=== PATIENT | female | born 1960 | race American Indian/Alaskan Native ===

== ENCOUNTER 2019-01-17 18:12 | Inpatient (IN) | payer OTHER ==
--- NOTE | 2019-01-17 20:01 | Emergency Department Report ---
Chief Complaint: Medical Clearance Stated Complaint: HEART PROBLEM/REFERRED BY Time Seen by Provider: 01/17/19 19:57 - HPI History of Present Illness: Pt was seen by [facility] today advised to be sent to ED for acute exacerbation of heart failure states that SOB, exertional SOB with steps for a couple of days pt is supposed to be on a water pill ran out two days ago VSS MSE screening note: Focused history performed Due to findings the following was ordered: CXR, labs ED Disposition for MSE Condition: Stable
[2019-01-17 20:29] LABS: Basophils % (Auto) 0.1 % (0.0-1.8); Eosinophils # (Auto) 0.1 K/mm3 (0.0-0.4); Eosinophils % (Auto) 1.3 % (0.0-4.3); Hemoglobin 13.3 gm/dl (10.1-14.3); Lymphocytes % (Auto) 37.4 % (13.4-35.0); Mean Corpuscular HGB Conc 32 % (30-34); Mean Corpuscular Volume 89 fl (79-97); Monocytes # (Auto) 0.4 K/mm3 (0.0-0.8); Monocytes % (Auto) 7.5 % (0.0-7.3); Platelet Count 202 K/mm3 (140-440); Red Blood Count 4.61 M/mm3 (3.65-5.03)
[2019-01-17 20:50] LABS: Alanine Aminotransferase 16 units/L (7-56); Albumin 3.7 g/dL (3.9-5); BUN/Creatinine Ratio 23; Blood Urea Nitrogen 21 mg/dL (7-17); Calcium 9.4 mg/dL (8.4-10.2); Hemolysis Index 9
--- NOTE | 2019-01-17 22:11 | XRay Report ---
PROCEDURE: XR CHEST ROUTINE 2V TECHNIQUE: PA and lateral views of the chest HISTORY: hx of CHF COMPARISONS: None FINDINGS: There is prominence of the interstitial markings in both lungs with peribronchial thickening. There is no definite evidence of focal infiltrate and no evidence of pneumothorax or pleural fluid co llection. The cardiac silhouette is markedly enlarged. The thoracic aorta is mildly tortuous with atherosclerotic vascular calcification. The bony structures are notable for degenerative change of the shoulder joints bilaterally. IMPRESSION: 1. Markedly enlarged cardiac silhouette. 2. Prominence of the interstitial markings with peribronchial thickening, acute versus chronic. This may represent changes of interstitial edema. Comparison with previous imaging studies would be helpful. This document is electronically signed by Lisy Arias MD., January 17 2019 10:09:31 PM ET
[2019-01-17] MEDS ORDERED: LASIX IV ONE (22:26)
--- NOTE | 2019-01-17 22:32 | Emergency Department Report ---
ED Shortness of Breath HPI - General Chief Complaint: Medical Clearance Stated Complaint: HEART PROBLEM/REFERRED BY Time Seen by Provider: 01/17/19 19:57 Source: patient Mode of arrival: Ambulatory Limitations: No Limitations - History of Present Illness Initial Comments: Patient is 59 years old female with history of diabetes and a remote history of congestive heart failure. Patient presented to the ER after she was sent from her mortgage coordinator office for admission for CHF exacerbation. Patient stated that she's been having shortness of breath and generalized weakness for the last 3 days. Patient admitted for orthopnea. Patient denied any chest pain, cough or chills. MD Complaint: shortness of breath, cough -: days(s) (3) Severity: moderate Consistency: constant Worsens With: lying flat Known History Of: congestive heart failure - Related Data Home Medications Medication Instructions Recorded Confirmed Last Taken Aspirin EC [Aspirin Enteric Coated 81 mg PO QDAY 11/14/15 11/20/15 11/15/15 TAB] Carvedilol [Coreg] 25 mg PO BID 11/14/15 11/20/15 11/20/15 03:00 Cholecalciferol (Vitamin D3) 2,000 unit PO QDAY 11/14/15 11/20/15 11/19/15 00:00 [Vitamin D-3] Glucosamine/Chondroitin Sulf A 1 each PO QDAY 11/14/15 11/20/15 11/19/15 00:00 [Glucosamine-Chondroitin Cap] metFORMIN [Glucophage] 500 mg PO BID 11/14/15 11/20/15 11/19/15 00:00 Fluticasone [Flonase] 1 spray NS QDAY PRN 11/19/15 11/20/15 11/19/15 00:00 Previous Rx's Medication Instructions Recorded Last Taken Type HYDROcodone/APAP 5-325 [[place] 1 each PO Q6HR PRN #30 tablet 11/20/15 Unknown Rx 5/325] HYDROcodone/APAP 5-325 [[place] 1 each PO Q6HR PRN #30 tablet 11/20/15 Unknown Rx 5/325] Allergies Allergy/AdvReac Type Severity Reaction Status Date / Time No Known Allergies Allergy Unverified 11/14/15 10:16 ED Review of Systems ROS: Stated complaint: HEART PROBLEM/REFERRED BY Other details as noted in HPI Comment: All other systems reviewed and negative Constitutional: denies: chills, fever Respiratory: orthopnea, shortness of breath, SOB with exertion, SOB at rest. denies: cough, wheezing Cardiovascular: denies: chest pain, palpitations Gastrointestinal: denies: abdominal pain, nausea, vomiting, diarrhea, constipation, hematemesis, melena, hematochezia Neurological: weakness (generalized). denies: headache, numbness, paresthesias, confusion, abnormal gait ED Past Medical Hx - Past Medical History Hx Hypertension: Yes (+ Cardiomyopathy) Hx Diabetes: Yes (FOR 1 YR) Hx Renal Disease: No Hx Arthritis: Yes (IN KNEES, WRIST AND SHOULDERS) Hx Seizures: No Hx Asthma: Yes (DR. GONZALEZ- PCP) Hx HIV: No - Surgical History Hx Breast Surgery: Yes (RIGHT BREAST BX 09/2015) - Social History Smoking Status: Never Smoker Substance Use Type: None - Medications Home Medications: Home Medications Medication Instructions Recorded Confirmed Last Taken Type Aspirin EC [Aspirin Enteric Coated 81 mg PO QDAY 11/14/15 11/20/15 11/15/15 History TAB] Carvedilol [Coreg] 25 mg PO BID 11/14/15 11/20/15 11/20/15 03:00 History Cholecalciferol (Vitamin D3) 2,000 unit PO QDAY 11/14/15 11/20/15 11/19/15 00:00 History [Vitamin D-3] Glucosamine/Chondroitin Sulf A 1 each PO QDAY 11/14/15 11/20/15 11/19/15 00:00 History [Glucosamine-Chondroitin Cap] metFORMIN [Glucophage] 500 mg PO BID 11/14/15 11/20/15 11/19/15 00:00 History Fluticasone [Flonase] 1 spray NS QDAY PRN 11/19/15 11/20/15 11/19/15 00:00 History HYDROcodone/APAP 5-325 [[place] 1 each PO Q6HR PRN #30 tablet 11/20/15 Unknown Rx 5/325] HYDROcodone/APAP 5-325 [[place] 1 each PO Q6HR PRN #30 tablet 11/20/15 Unknown Rx 5/325] ED Physical Exam - General Limitations: No Limitations General appearance: alert, in no apparent distress - Head Head exam: Present: atraumatic - Eye Eye exam: Present: normal appearance, PERRL - ENT ENT exam: Present: normal exam, normal orophraynx, mucous membranes moist - Neck Neck exam: Present: normal inspection, full ROM. Absent: tenderness, meningismus, lymphadenopathy, thyromegaly - Respiratory Respiratory exam: Present: rales. Absent: respiratory distress, wheezes, rhonchi, stridor, accessory muscle use, decreased breath sounds, prolonged expiratory - Cardiovascular Cardiovascular Exam: Present: regular rate, normal rhythm, normal heart sounds - GI/Abdominal GI/Abdominal exam: Present: soft, normal bowel sounds. Absent: distended, tenderness, guarding, rebound, rigid, organomegaly, mass, bruit, pulsatile mass - Extremities Exam Extremities exam: Present: normal inspection, full ROM, normal capillary refill, pedal edema. Absent: calf tenderness - Back Exam Back exam: Present: normal inspection, full ROM. Absent: CVA tenderness (R), CVA tenderness (L) - Neurological Exam Neurological exam: Present: alert, oriented X3, CN II-XII intact, normal gait, reflexes normal - Skin Skin exam: Present: warm, intact, normal color ED Course Vital Signs 01/17/19 19:57 Temperature 98.6 F Pulse Rate 89 Respiratory 20 Rate Blood Pressure 135/86 O2 Sat by Pulse 98 Oximetry - Consultations Consultation #1: 01/17/19 22:40 I discussed the patient is Dr. Kraus, he advised to admit to the hospital and he will be consulted and the patient. ED Medical Decision Making - Lab Data Result diagrams: 01/17/19 20:07 01/17/19 20:07 - EKG Data -: EKG Interpreted by [facility] - Radiology Data Radiology results: report reviewed Referring Physician: CY HICKMAN Patient Name: MAILE REBOLLAR Date of : 1960 Sex: Female Report Date: 2019-01-17 Report Status: Finalized Findings [facility] [address] [place] [address] XRay Report Signed Patient: MAILE REBOLLAR MR#: [id number] : 1960 Acct:[id number] Age/Sex: 59 / F ADM Date: 01/17/19 Loc: ED Attending Dr: Ordering Physician: ROYAL WILD Date of Service: 01/17/19 Procedure(s): XR chest routine 2V Accession Number(s): [id number] cc: ROYAL WILD Fluoro Time In Minutes: PROCEDURE: XR CHEST ROUTINE 2V TECHNIQUE: PA and lateral views of the chest HISTORY: hx of CHF COMPARISONS: None FINDINGS: There is prominence of the interstitial markings in both lungs with peribronchial thickening. There is no definite evidence of focal infiltrate and no evidence of pneumothorax or pleural fluid collection. The cardiac silhouette is markedly enlarged. The thoracic aorta is mildly tortuous with atherosclerotic vascular calcification. The bony structures are notable for degenerative change of the shoulder joints bilaterally. IMPRESSION: 1. Markedly enlarged cardiac silhouette. 2. Prominence of the interstitial markings with peribronchial thickening, acute versus chronic. This may represent changes of interstitial edema. Comparison with previous imaging studies would be helpful. This document is electronically signed by Lisy Arias MD., January 17 2019 10:09:31 PM ET Transcribed By: ED Dictated By: LISY ARIAS MD Electronically Authenticated By: LISY ARIAS MD Signed Date/Time: 01/17/192210 DD/ 15 TD/TT: 01/17/192115 - Medical Decision Making Patient is 59 years old female with history of diabetes and a remote history of congestive heart failure. Patient presented to the ER after she was sent from her mortgage coordinator office for admission for CHF exacerbation. Patient stated that she's been having shortness of breath and generalized weakness for the last 3 days. Patient admitted for orthopnea. Patient denied any chest pain, cough or chills. Patient chest x-ray showed a pulmonary congestion and a BNP >6000. I discussed the patient is Dr. Kraus from mortgage coordinator. I discussed the patient is Dr. Anisha Bearden, She agreed to admit the patient to medical service. Critical Care Time: Yes Critical care time in (mins) excluding proc time.: 30 Critical care attestation.: If time is entered above; I have spent that time in minutes in the direct care of this critically ill patient, excluding procedure time. ED Disposition Clinical Impression: CHF exacerbation Disposition: OP ADMIT IP TO THIS HOSP Is pt being admited?: Yes Condition: Stable Referrals: [facility] [place], MD [Primary Care Provider] - 3-5 Days
--- NOTE | 2019-01-17 23:43 | History and Physical Report ---
History of Present Illness Date of examination: 01/17/19 History of present illness: 59-year-old history of diabetes, CHF, asthma, emergency room with complaints of shortness, PND, and lower extremity edema 3 days. She states that she's been off her Lasix years because she has been doing well, the crime scene examiner took her off it. She saw a crime scene examiner today who sent her to the emergency room for further evaluation, an echocardiogram was done in their office Review of systems Constitutional: no weight loss, chills, fever Ears, eyes, nose, mouth and throat: no nasal congestion, no nasal discharge, no sinus pressure, no vision change, no red eye. Neck: No neck pain or rigidity. Cardiovascular: no palpitations, chest pain Respiratory: no cough,+ shortness of breath Gastrointestinal: no hematochezia, abdominal pain Genitourinary : no frequency , no hematuria Musculoskeletal: no joint swelling or muscle ache Integumentary: no rash, no pruritis Neurological: no parathesias, no focal weakness Endocrine: no cold or heat intolerance, no polyuria or polydipsia Hematologic/Lymphatic: no easy bruising, no easy bleeding, no gland swelling Allergic/Immunologic: no urticaria, no angioedema. PAST MEDICAL HISTORY:diabetes, CHF, asthma PAST SURGICAL HISTORY: Breast SOCIAL HISTORY: Social alcohol, no drugs, tobacco FAMILY HISTORY: Hypertension Medications and Allergies Allergies Allergy/AdvReac Type Severity Reaction Status Date / Time No Known Allergies Allergy Unverified 11/14/15 10:16 Home Medications Medication Instructions Recorded Confirmed Last Taken Type Aspirin EC [Aspirin Enteric Coated 81 mg PO QDAY 11/14/15 01/18/19 01/17/19 History TAB] Carvedilol [Coreg] 25 mg PO BID 11/14/15 01/18/19 01/17/19 History Cholecalciferol (Vitamin D3) 2,000 unit PO QDAY 11/14/15 01/20/19 11/19/15 00:00 History [Vitamin D3] Glucosamine/Chondroitin Sulf A 1 each PO QDAY 11/14/15 01/20/19 11/19/15 00:00 History [Glucosamine-Chondroitin Cap] metFORMIN [Glucophage] 500 mg PO BID 11/14/15 01/20/19 11/19/15 00:00 History Fluticasone [Flonase] 1 spray NS QDAY PRN 11/19/15 01/20/19 11/19/15 00:00 History HYDROcodone/APAP 5-325 [[place] 1 each PO Q6HR PRN #30 tablet 11/20/15 01/20/19 Unknown Rx 5-325 mg TAB] HYDROcodone/APAP 5-325 [[place] 1 each PO Q6HR PRN #30 tablet 11/20/15 01/20/19 Unknown Rx 5-325 mg TAB] Furosemide [Lasix TAB] 40 mg PO BID #60 tablet 01/20/19 Unknown Rx Lisinopril [Zestril TAB] 2.5 mg PO QDAY #30 tablet 01/20/19 Unknown Rx Potassium Chloride [K-Dur] 10 meq PO QDAY #30 tablet 01/20/19 Unknown Rx Exam - Physical Exam Narrative exam: General Apperance: The patient lying in bed, breathing comfortable HEENT: Normocephalic, atraumatic. Pupils equally round and reactive to light, EOMI, no sclericterus or JVD or thyromegaly or nodule. , no carotid bruit, mucous membranes moist, no exudate or erythema Heart: S1-S2, regular is rhythm Lungs: Crackles bilaterally, breathing comfortable Abdomen: Positive bowel sounds, soft, nontender, nondistended, no organomegaly Extremities: +edema cyanosis clubbing Skin: no rash, nodule, warm and dry Neuro: cranial nerves 2-12 intact, speech is fluent, motor/sensory intact - Constitutional Vitals: Temp Pulse Resp BP Pulse Ox 98.6 F 89 20 135/86 98 01/17/19 19:57 01/17/19 19:57 01/17/19 19:57 01/17/19 19:57 01/17/19 19:57 Results - Labs CBC & Chem 7: 01/18/19 05:46 01/19/19 06:39 Labs: Abnormal lab results 01/17/19 01/17/19 Range/Units 20:07 20:07 RDW 17.0 H (13.2-15.2) % Lymph % (Auto) 37.4 H (13.4-35.0) % [place] % (Auto) 7.5 H (0.0-7.3) % Chloride 109.1 H (98-107) mmol/L Carbon Dioxide 20 L (22-30) mmol/L BUN 21 H (7-17) mg/dL Glucose 126 H (65-100) mg/dL NT-Pro-B Natriuret Pep 6118 H (0-900) pg/mL Albumin 3.7 L (3.9-5) g/dL - Imaging and Cardiology Chest x-ray: report reviewed Assessment and Plan Assessment CHF exacerbation, probably systolic diabetes asthma Plan Admit to medicine Diurese IV Lasix Check cardiac enzymes, recent echo was done Consult cardiology, start beta stephanie, JESUS inhibitor, aspirin Monitor I's and O's, daily weights Check fingersticks, initiate insulin sliding scale DVT prophylaxis
[2019-01-18] MEDS ORDERED: ZOFRAN IV PRN (00:47)
[2019-01-18] MEDS ORDERED: SODIUM CHLORIDE FLUSH SYRINGE 10 ML IV PRN (00:47)
[2019-01-18] MEDS ORDERED: PERCOCET 5/325 PO PRN (00:47)
[2019-01-18] MEDS ORDERED: TYLENOL PO PRN (00:47)
[2019-01-18] MEDS ORDERED: D50W (25GM) Syringe IV PRN (00:47)
[2019-01-18] MEDS ORDERED: FLONASE NS PRN (00:48)
[2019-01-18 01:58] LABS: Creatine Kinase MB 1.5 ng/mL (0.0-4.0)
[2019-01-18] MEDS: DUONEB *Not for PRN Use IH SCH ×4 (03:17→21:02)
[2019-01-18 06:00] LABS: Basophils # (Auto) 0.1 K/mm3 (0.0-0.1); Basophils % (Auto) 1.1 % (0.0-1.8); Eosinophils # (Auto) 0.1 K/mm3 (0.0-0.4); Eosinophils % (Auto) 1.7 % (0.0-4.3); Hematocrit 41.7 % (30.3-42.9); Hemoglobin 13.4 gm/dl (10.1-14.3); Lymphocytes # (Auto) 2.2 K/mm3 (1.2-5.4); Lymphocytes % (Auto) 42.2 % (13.4-35.0); Mean Corpuscular HGB Conc 32 % (30-34); Mean Corpuscular Volume 89 fl (79-97); Monocytes # (Auto) 0.4 K/mm3 (0.0-0.8); Monocytes % (Auto) 7.7 % (0.0-7.3); Platelet Count 204 K/mm3 (140-440); Red Cell Distribution Width 16.9 % (13.2-15.2)
[2019-01-18 06:18] LABS: Creatine Kinase MB 1.5 ng/mL (0.0-4.0)
[2019-01-18 06:23] LABS: BUN/Creatinine Ratio 19; Blood Urea Nitrogen 21 mg/dL (7-17); Calcium 9.4 mg/dL (8.4-10.2); Hemolysis Index 3
[2019-01-18] MEDS: LASIX IV SCH ×2 (06:24→18:11)
[2019-01-18] MEDS: HumaLOG SUB-Q SCH ×4 (07:30→22:26)
[2019-01-18] MEDS ORDERED: GLUCOSAMINE PO SCH (10:00)
[2019-01-18] MEDS ORDERED: CHONDROITIN PO SCH (10:00)
--- NOTE | 2019-01-18 10:44 | Consultation ---
History of Present Illness Consult date: 01/18/19 Requesting physician: YOSSI LUNDY Consult reason: congestive heart failure History of present illness: Patient is a 59 y/o Black female with a history of aloah-lb-pjzlere heart failure with reduced ejection fraction, dilated nonischemic cardiomyopathy, hypertension, diabetes and asthma who presented to the [facility] ED on 01/17/19 after a visit to our office with shortness of breath and leg swelling for 2-3 days. A n echo from our office on 01/17 found an EF of 10 to 15 percent with a severely dilated LV, moderate hypertension, moderate to severe MR, and moderately dilated RA. She normally follows with Dr. Saucedo, but was seen by Dr. Mak Kraus for an unscheduled visit. She reports that she ran out of her Lasix and initially attributed her shortness of breath to allergies/asthma; however, her shortness of breath worsened to the point where she could not lie flat and her legs became swollen. Her last cardiac catheterization on 01/15/10 found normal coronaries, dilated cardiomyopathy and an EF of 20 to 25 percent. Chest x-ray showed no significant acute findings. She received a dose of Lasix in the ED and reports her breathing is improved on examination this morning. She states she is able to lie flat and walk to the bathroom. Past History Past Medical History: diabetes, heart failure, other (asthma) Past Surgical History: total knee replacement, Other (right breast biopsy) Medications and Allergies Allergies Allergy/AdvReac Type Severity Reaction Status Date / Time No Known Allergies Allergy Unverified 11/14/15 10:16 Home Medications Medication Instructions Recorded Confirmed Last Taken Type Aspirin EC [Aspirin Enteric Coated 81 mg PO QDAY 11/14/15 01/18/19 01/17/19 History TAB] Carvedilol [Coreg] 25 mg PO BID 11/14/15 01/18/19 01/17/19 History Cholecalciferol (Vitamin D3) 2,000 unit PO QDAY 11/14/15 11/20/15 11/19/15 00:00 History [Vitamin D-3] Glucosamine/Chondroitin Sulf A 1 each PO QDAY 11/14/15 11/20/15 11/19/15 00:00 History [Glucosamine-Chondroitin Cap] metFORMIN [Glucophage] 500 mg PO BID 11/14/15 11/20/15 11/19/15 00:00 History Fluticasone [Flonase] 1 spray NS QDAY PRN 11/19/15 11/20/15 11/19/15 00:00 History HYDROcodone/APAP 5-325 [[place] 1 each PO Q6HR PRN #30 tablet 11/20/15 Unknown Rx 5/325] HYDROcodone/APAP 5-325 [[place] 1 each PO Q6HR PRN #30 tablet 11/20/15 Unknown Rx 5/325] Active Meds: Active Medications Acetaminophen (Tylenol) 650 mg PO Q4H PRN PRN Reason: Pain MILD(1-3)/Fever >100.5/CONTI Albuterol/Ipratropium (Duoneb *Not For Prn Use*) 1 ampul IH Q6HRT [facility] Last Admin: 01/18/19 03:17 Dose: Not Given Documented by: Aspirin (Halfprin Ec) 81 mg PO QDAY [facility] Carvedilol (Coreg) 25 mg PO BID [facility] Cholecalciferol (Vitamin D3) 2,000 unit PO QDAY [facility] Dextrose (D50w (25gm) Syringe) 50 ml IV PRN PRN PRN Reason: Hypoglycemia Enoxaparin Sodium (Lovenox) 40 mg SUB-Q QDAY [facility] Fluticasone Propionate (Flonase) 50 mcg NS QDAY PRN PRN Reason: SINUS ALLERGIES Furosemide (Lasix) 40 mg IV BID@0600,1800 [facility] Last Admin: 01/18/19 06:24 Dose: 40 mg Documented by: Insulin Human Lispro (Humalog) 0 unit SUB-Q [facility]; Protocol Lisinopril (Zestril) 2.5 mg PO QDAY [facility] Metformin HCl (Glucophage) 500 mg PO BIDDIAB [facility] Ondansetron HCl (Zofran) 4 mg IV Q8H PRN PRN Reason: Nausea And Vomiting Oxycodone/Acetaminophen (Percocet 5/325) 1 tab PO Q6H PRN PRN Reason: Pain, Moderate (4-6) Sodium Chloride (Sodium Chloride Flush Syringe 10 Ml) 10 ml IV BID [facility] Sodium Chloride (Sodium Chloride Flush Syringe 10 Ml) 10 ml IV PRN PRN PRN Reason: LINE FLUSH Review of Systems Cardiovascular: shortness of breath, dyspnea on exertion Respiratory: shortness of breath, dyspnea on exertion Physical Examination Last Vital Signs Temp 97.9 F 01/18/19 08:23 Pulse 78 01/18/19 06:06 Resp 18 01/18/19 08:23 BP 113/65 01/18/19 08:23 Pulse Ox 100 01/18/19 03:04 General appearance: mild distress Lungs: Positive: No Wheeze, Rales, Rhonchi Extremities: Present: +2 Edema Results 01/18/19 05:46 01/18/19 05:46 Cardiac Enzymes 01/17/19 01/18/19 01/18/19 Range/Units 20:07 01:16 05:46 AST 19 (5-40) units/L CK-MB (CK-2) 1.5 1.5 (0.0-4.0) ng/mL CBC 01/17/19 01/18/19 Range/Units 20:07 05:46 WBC 5.4 5.2 (4.5-11.0) K/mm3 RBC 4.61 4.70 (3.65-5.03) M/mm3 Hgb 13.3 13.4 (10.1-14.3) gm/dl Hct 41.0 41.7 (30.3-42.9) % Plt Count 202 204 (140-440) K/mm3 Lymph # 2.0 2.2 (1.2-5.4) K/mm3 [place] # 0.4 0.4 (0.0-0.8) K/mm3 Eos # 0.1 0.1 (0.0-0.4) K/mm3 Baso # 0.0 0.1 (0.0-0.1) K/mm3 Comprehensive Metabolic Panel 01/17/19 01/18/19 Range/Units 20:07 05:46 Sodium 140 144 (137-145) mmol/L Potassium 4.5 4.0 (3.6-5.0) mmol/L Chloride 109.1 H 105.7 (98-107) mmol/L Carbon Dioxide 20 L 25 (22-30) mmol/L BUN 21 H 21 H (7-17) mg/dL Creatinine 0.9 1.1 (0.7-1.2) mg/dL Glucose 126 H 83 (65-100) mg/dL Calcium 9.4 9.4 (8.4-10.2) mg/dL AST 19 (5-40) units/L ALT 16 (7-56) units/L Alkaline Phosphatase 58 (35-129) units/L Total Protein 6.6 (6.3-8.2) g/dL Albumin 3.7 L (3.9-5) g/dL - Imaging and Cardiology Echo: report reviewed (An echo from our office on 01/17 found an EF of 10 to 15 percent with a severely dilated LV, moderate hypertension, moderate to severe MR, and moderately dilated RA.) Cardiac cath: report reviewed (Her last cardiac catheterization on 01/15/10 found normal coronaries, dilated cardiomyopathy and an EF of 20 to 25 percent.) EKG: report reviewed EKG interpretations - Telemetry EKG Rhythm: Sinus Rhythm (with left bundle branch block) Assessment and Plan [id number] heart failure with reduced ejection fraction Echo from our office done 01/17 found an EF of 10 to 15 percent with a severely dilated LV, moderate hypertension, moderate to severe MR, and moderately dilated RA Agree with current cardiac management, which includes Coreg, IV Lasix BID, ASA and lisinopril Dilated Nonischmemic cardiomyopathy EF 10-15% Cardiac catheterization on 01/15/10 found normal coronaries, dilated cardiomyopathy and an EF of 20 to 25 percent Diabetes mellitus Management by hospitalist team. Will check A1C and lipid panel in AM Hypertension Blood pressure currently controlled. Continue current cardiac management. Asthma Management by hospitalist team. Obesity The patient has been seen in conjunction with Dr. Cruz, who agrees with assessment and plan.
[2019-01-18] MEDS: COREG PO SCH ×2 (12:45→22:38)
[2019-01-18] MEDS: VITAMIN D3 PO SCH (12:45)
[2019-01-18] MEDS: GLUCOPHAGE PO SCH ×2 (12:45→18:11)
[2019-01-18] MEDS: HALFPRIN EC PO SCH (12:45)
[2019-01-18] MEDS: ZESTRIL PO SCH (12:45)
[2019-01-18] MEDS: LOVENOX SUB-Q SCH (12:46)
[2019-01-18] MEDS: SODIUM CHLORIDE FLUSH SYRINGE 10 ML IV SCH ×2 (12:46→22:36)
--- NOTE | 2019-01-18 13:56 | Progress Note ---
Assessment and Plan Assessment and plan: Acute resp failure due to CHF exacerbation supplemental Oxygen Acute on chronic diastolic CHF excaerbation lokesh schaffer cardiology following Asthma borderline diabetes diabetic diet Obesity. I counseled her on diet and exercise History Interval history: Less shortness of breath No chest pain Hospitalist Physical - Physical exam Narrative exam: Gen: Not in acute distress, lying in bed HEENT: Normocephalic, atraumatic Neck: supple, no JVD Heart: S1 and S2 reg, no murmurs, rubs or gallop Lungs: Bilateral basal crackles Abd: soft, non tender, non distended, normal BS Ext: Bilateral pedal edema, no cyanosis, Neuro: AAO x 3, no focal signs, moves all ext Psych:Normal mood - Constitutional Vitals: Temp Pulse Resp BP Pulse Ox 97.9 F 78 18 113/65 100 01/18/19 08:23 01/18/19 06:06 01/18/19 08:23 01/18/19 08:23 01/18/19 03:04 General appearance: Present: mild distress Results - Labs CBC & Chem 7: 01/18/19 05:46 01/19/19 06:39 Labs: Laboratory Last Values WBC 5.2 K/mm3 (4.5-11.0) 01/18/19 05:46 RBC 4.70 M/mm3 (3.65-5.03) 01/18/19 05:46 Hgb 13.4 gm/dl (10.1-14.3) 01/18/19 05:46 Hct 41.7 % (30.3-42.9) 01/18/19 05:46 MCV 89 fl (79-97) 01/18/19 05:46 MCH 29 pg (28-32) 01/18/19 05:46 MCHC 32 % (30-34) 01/18/19 05:46 RDW 16.9 % (13.2-15.2) H 01/18/19 05:46 Plt Count 204 K/mm3 (140-440) 01/18/19 05:46 Lymph % (Auto) 42.2 % (13.4-35.0) H 01/18/19 05:46 [place] % (Auto) 7.7 % (0.0-7.3) H 01/18/19 05:46 Eos % (Auto) 1.7 % (0.0-4.3) 01/18/19 05:46 Baso % (Auto) 1.1 % (0.0-1.8) 01/18/19 05:46 Lymph # 2.2 K/mm3 (1.2-5.4) 01/18/19 05:46 [place] # 0.4 K/mm3 (0.0-0.8) 01/18/19 05:46 Eos # 0.1 K/mm3 (0.0-0.4) 01/18/19 05:46 Baso # 0.1 K/mm3 (0.0-0.1) 01/18/19 05:46 Seg Neutrophils % 47.3 % (40.0-70.0) 01/18/19 05:46 Seg Neutrophils # 2.5 K/mm3 (1.8-7.7) 01/18/19 05:46 Sodium 144 mmol/L (137-145) 01/18/19 05:46 Potassium 4.0 mmol/L (3.6-5.0) 01/18/19 05:46 Chloride 105.7 mmol/L (98-107) 01/18/19 05:46 Carbon Dioxide 25 mmol/L (22-30) 01/18/19 05:46 Anion Gap 17 mmol/L 01/18/19 05:46 BUN 21 mg/dL (7-17) H 01/18/19 05:46 Creatinine 1.1 mg/dL (0.7-1.2) 01/18/19 05:46 Estimated GFR > 60 ml/min 01/18/19 05:46 BUN/Creatinine Ratio 19 % 01/18/19 05:46 Glucose 83 mg/dL (65-100) 01/18/19 05:46 POC Glucose 138 (70-105) H 01/18/19 13:00 Calcium 9.4 mg/dL (8.4-10.2) 01/18/19 05:46 Total Bilirubin 1.20 mg/dL (0.1-1.2) 01/17/19 20:07 AST 19 units/L (5-40) 01/17/19 20:07 ALT 16 units/L (7-56) 01/17/19 20:07 Alkaline Phosphatase 58 units/L (35-129) 01/17/19 20:07 Total Creatine Kinase 48 units/L (30-135) 01/18/19 05:46 CK-MB (CK-2) 1.5 ng/mL (0.0-4.0) 01/18/19 05:46 CK-MB (CK-2) Rel Index 3.1 (0-4) 01/18/19 05:46 Troponin T < 0.010 ng/mL (0.00-0.029) 01/18/19 05:46 NT-Pro-B Natriuret Pep 6118 pg/mL (0-900) H 01/17/19 20:07 Total Protein 6.6 g/dL (6.3-8.2) 01/17/19 20:07 Albumin 3.7 g/dL (3.9-5) L 01/17/19 20:07 Albumin/Globulin Ratio 1.3 % 01/17/19 20:07 Active Medications - Current Medications Current Medications: Generic Name Dose Route Start Last Admin Trade Name Freq PRN Reason Stop Dose Admin Acetaminophen 650 mg 01/18/19 00:47 Tylenol PO Q4H PRN Pain MILD(1-3)/Fever >100.5/CONTI Albuterol/Ipratropium 1 ampul 01/18/19 02:00 01/18/19 11:48 Duoneb *Not For Prn Use* IH 1 ampul Q6HRT MATTHEW Administration Aspirin 81 mg 01/18/19 10:00 01/18/19 12:45 Halfprin Ec PO 81 mg QDAY MATTHEW Administration Carvedilol 25 mg 01/18/19 10:00 01/18/19 12:45 Coreg PO 25 mg BID MATTHEW Administration Cholecalciferol 2,000 unit 01/18/19 10:00 01/18/19 12:45 Vitamin D3 PO 2,000 unit QDAY MATTHEW Administration Dextrose 50 ml 01/18/19 00:47 D50w (25gm) Syringe IV PRN PRN Hypoglycemia Enoxaparin Sodium 40 mg 01/18/19 10:00 01/18/19 12:46 Lovenox SUB-Q 40 mg QDAY MATTHEW Administration Fluticasone Propionate 50 mcg 01/18/19 00:48 Flonase NS QDAY PRN SINUS ALLERGIES Furosemide 40 mg 01/18/19 06:00 01/18/19 06:24 Lasix IV 40 mg BID@0600,1800 MATTHEW Administration Insulin Human Lispro 0 unit 01/18/19 07:30 01/18/19 07:30 Humalog SUB-Q Not Given ACHS [facility] Protocol Lisinopril 2.5 mg 01/18/19 10:00 01/18/19 12:45 Zestril PO 2.5 mg QDAY MATTHEW Administration Metformin HCl 500 mg 01/18/19 08:00 01/18/19 12:45 Glucophage PO 500 mg BIDDIAB MATTHEW Administration Ondansetron HCl 4 mg 01/18/19 00:47 Zofran IV Q8H PRN Nausea And Vomiting Oxycodone/Acetaminophen 1 tab 01/18/19 00:47 Percocet 5/325 PO Q6H PRN Pain, Moderate (4-6) Sodium Chloride 10 ml 01/18/19 10:00 01/18/19 12:46 Sodium Chloride Flush Syringe 10 Ml IV 10 ml BID MATTHEW Administration Sodium Chloride 10 ml 01/18/19 00:47 Sodium Chloride Flush Syringe 10 Ml IV PRN PRN LINE FLUSH
[2019-01-19] MEDS ORDERED: PROVENTIL IH PRN (00:55)
[2019-01-19] MEDS: LASIX IV SCH ×2 (05:35→18:13)
[2019-01-19 07:22] LABS: BUN/Creatinine Ratio 21; Blood Urea Nitrogen 19 mg/dL (7-17); Calcium 9.6 mg/dL (8.4-10.2); Chol/HDL Ratio 2.55 %; HDL Cholesterol 45 mg/dL (40-59); Hemolysis Index 12; LDL Cholesterol,Direct 69 mg/dL (50-130)
[2019-01-19] MEDS: HumaLOG SUB-Q SCH ×4 (07:30→22:24)
[2019-01-19] MEDS: HALFPRIN EC PO SCH (09:31)
[2019-01-19] MEDS: COREG PO SCH ×2 (09:31→22:24)
[2019-01-19] MEDS: LOVENOX SUB-Q SCH (09:31)
[2019-01-19] MEDS: ZESTRIL PO SCH (09:31)
[2019-01-19] MEDS: GLUCOPHAGE PO SCH ×2 (09:31→18:13)
[2019-01-19] MEDS: SODIUM CHLORIDE FLUSH SYRINGE 10 ML IV SCH ×2 (09:32→22:24)
[2019-01-19] MEDS: DUONEB *Not for PRN Use IH SCH ×3 (10:13→21:46)
--- NOTE | 2019-01-19 13:57 | Progress Note ---
Assessment and Plan HFrEF 20% Continue IV diuresis Coreg and lisinopril Dilated Nonischmemic cardiomyopathy Diabetes mellitus Management by hospitalist team. Will check A1C and lipid panel in AM Hypertension Blood pressure currently controlled. Continue current cardiac management. Asthma Management by hospitalist team. Obesity Subjective Date of service: 01/19/19 Principal diagnosis: CHF Interval history: Pt sitting up feels better today. Objective Vital Signs Temp Pulse Pulse Resp Resp BP Pulse Ox 01/19/19 07:25 97.5 F L 18 103/67 01/19/19 03:19 98.6 F 67 18 110/66 93 01/18/19 22:44 98.5 F 67 18 92/45 96 01/18/19 22:37 107/68 01/18/19 21:15 69 20 01/18/19 21:05 96 01/18/19 21:04 70 20 01/18/19 19:35 98.3 F 74 16 104/55 94 01/18/19 16:42 92 H 18 01/18/19 16:26 98.2 F 18 115/56 01/18/19 16:25 90 20 - Physical Examination General: No Apparent Distress HEENT: Positive: PERRL, EOMI Neck: Positive: neck supple, trachea midline Cardiac: Positive: Reg Rate and Rhythm Lungs: Positive: Normal Exam, clear to auscultation Neuro: Positive: Grossly Intact Abdomen: Positive: Soft, Active Bowel Sounds Skin: Negative: Rash Extremities: Present: +1 Edema - Labs and Meds Lipids 01/19/19 Range/Units 06:39 Triglycerides 77 (2-149) mg/dL Cholesterol 115 (50-199) mg/dL HDL Cholesterol 45 (40-59) mg/dL Cholesterol/HDL Ratio 2.55 % Comprehensive Metabolic Panel 01/19/19 Range/Units 06:39 Sodium 145 (137-145) mmol/L Potassium 4.0 (3.6-5.0) mmol/L Chloride 103.6 (98-107) mmol/L Carbon Dioxide 31 H (22-30) mmol/L BUN 19 H (7-17) mg/dL Creatinine 0.9 (0.7-1.2) mg/dL Glucose 116 H (65-100) mg/dL Calcium 9.6 (8.4-10.2) mg/dL - Imaging and Cardiology EKG: report reviewed Echo: report reviewed (An echo from our office on 01/17 found an EF of 10 to 15 percent with a severely dilated LV, moderate hypertension, moderate to severe MR, and moderately dilated RA.) Cardiac cath: report reviewed (Her last cardiac catheterization on 01/15/10 found normal coronaries, dilated cardiomyopathy and an EF of 20 to 25 percent.)
[2019-01-19] MEDS: VITAMIN D3 PO SCH (18:13)
[2019-01-20] MEDS: LASIX IV SCH (05:20)
[2019-01-20] MEDS: HumaLOG SUB-Q SCH (07:30)
[2019-01-20] MEDS: VITAMIN D3 PO SCH (08:59)
[2019-01-20] MEDS: COREG PO SCH (09:00)
[2019-01-20] MEDS: GLUCOPHAGE PO SCH (09:00)
[2019-01-20] MEDS: HALFPRIN EC PO SCH (09:00)
[2019-01-20] MEDS: LOVENOX SUB-Q SCH (09:00)
[2019-01-20] MEDS: ZESTRIL PO SCH (09:00)
[2019-01-20] MEDS: SODIUM CHLORIDE FLUSH SYRINGE 10 ML IV SCH (09:01)
[2019-01-20] MEDS: DUONEB *Not for PRN Use IH SCH ×2 (09:42→15:01)
--- NOTE | 2019-01-20 12:36 | Progress Note ---
Assessment and Plan Assessment and plan: Acute resp failure due to CHF exacerbation supplemental Oxygen Acute on chronic systolic CHF excaerbation lasix sarbjit cardiology following Cardiomyopathy EF 10-15% on Echo done 01/17/19 Asthma borderline diabetes mellitus type 2 diabetic diet metformin Obesity. I counseled her on diet and exercise History Interval history: Less shortness of breath Less leg swelling No chest pain Hospitalist Physical - Physical exam Narrative exam: Gen: Not in acute distress, lying in bed HEENT: Normocephalic, atraumatic Neck: supple, no JVD Heart: S1 and S2 reg, no murmurs, rubs or gallop Lungs: Bilateral basal crackles Abd: soft, non tender, non distended, normal BS Ext: Bilateral pedal edema, no cyanosis, Neuro: AAO x 3, no focal signs, moves all ext Psych:Normal mood - Constitutional Vitals: Temp Pulse Resp BP Pulse Ox 98.2 F 68 18 111/63 90 01/20/19 07:54 01/20/19 09:59 01/20/19 09:59 01/20/19 07:54 01/20/19 07:54 General appearance: Present: obese Results - Labs CBC & Chem 7: 01/18/19 05:46 01/19/19 06:39 Labs: Laboratory Last Values WBC 5.2 K/mm3 (4.5-11.0) 01/18/19 05:46 RBC 4.70 M/mm3 (3.65-5.03) 01/18/19 05:46 Hgb 13.4 gm/dl (10.1-14.3) 01/18/19 05:46 Hct 41.7 % (30.3-42.9) 01/18/19 05:46 MCV 89 fl (79-97) 01/18/19 05:46 MCH 29 pg (28-32) 01/18/19 05:46 MCHC 32 % (30-34) 01/18/19 05:46 RDW 16.9 % (13.2-15.2) H 01/18/19 05:46 Plt Count 204 K/mm3 (140-440) 01/18/19 05:46 Lymph % (Auto) 42.2 % (13.4-35.0) H 01/18/19 05:46 [place] % (Auto) 7.7 % (0.0-7.3) H 01/18/19 05:46 Eos % (Auto) 1.7 % (0.0-4.3) 01/18/19 05:46 Baso % (Auto) 1.1 % (0.0-1.8) 01/18/19 05:46 Lymph # 2.2 K/mm3 (1.2-5.4) 01/18/19 05:46 [place] # 0.4 K/mm3 (0.0-0.8) 01/18/19 05:46 Eos # 0.1 K/mm3 (0.0-0.4) 01/18/19 05:46 Baso # 0.1 K/mm3 (0.0-0.1) 01/18/19 05:46 Seg Neutrophils % 47.3 % (40.0-70.0) 01/18/19 05:46 Seg Neutrophils # 2.5 K/mm3 (1.8-7.7) 01/18/19 05:46 Sodium 145 mmol/L (137-145) 01/19/19 06:39 Potassium 4.0 mmol/L (3.6-5.0) 01/19/19 06:39 Chloride 103.6 mmol/L (98-107) 01/19/19 06:39 Carbon Dioxide 31 mmol/L (22-30) H 01/19/19 06:39 Anion Gap 14 mmol/L 01/19/19 06:39 BUN 19 mg/dL (7-17) H 01/19/19 06:39 Creatinine 0.9 mg/dL (0.7-1.2) 01/19/19 06:39 Estimated GFR > 60 ml/min 01/19/19 06:39 BUN/Creatinine Ratio 21 % 01/19/19 06:39 Glucose 116 mg/dL (65-100) H 01/19/19 06:39 POC Glucose 79 (70-105) 01/20/19 07:59 Hemoglobin A1c 5.9 % (4-6) 01/19/19 06:39 Calcium 9.6 mg/dL (8.4-10.2) 01/19/19 06:39 Total Bilirubin 1.20 mg/dL (0.1-1.2) 01/17/19 20:07 AST 19 units/L (5-40) 01/17/19 20:07 ALT 16 units/L (7-56) 01/17/19 20:07 Alkaline Phosphatase 58 units/L (35-129) 01/17/19 20:07 Total Creatine Kinase 48 units/L (30-135) 01/18/19 05:46 CK-MB (CK-2) 1.5 ng/mL (0.0-4.0) 01/18/19 05:46 CK-MB (CK-2) Rel Index 3.1 (0-4) 01/18/19 05:46 Troponin T < 0.010 ng/mL (0.00-0.029) 01/18/19 05:46 NT-Pro-B Natriuret Pep 6118 pg/mL (0-900) H 01/17/19 20:07 Total Protein 6.6 g/dL (6.3-8.2) 01/17/19 20:07 Albumin 3.7 g/dL (3.9-5) L 01/17/19 20:07 Albumin/Globulin Ratio 1.3 % 01/17/19 20:07 Triglycerides 77 mg/dL (2-149) 01/19/19 06:39 Cholesterol 115 mg/dL (50-199) 01/19/19 06:39 LDL Cholesterol Direct 69 mg/dL (50-130) 01/19/19 06:39 HDL Cholesterol 45 mg/dL (40-59) 01/19/19 06:39 Cholesterol/HDL Ratio 2.55 % 01/19/19 06:39 Active Medications - Current Medications Current Medications: Generic Name Dose Route Start Last Admin Trade Name Freq PRN Reason Stop Dose Admin Acetaminophen 650 mg 01/18/19 00:47 Tylenol PO Q4H PRN Pain MILD(1-3)/Fever >100.5/CONTI Albuterol 2.5 mg 01/19/19 00:55 Proventil IH Q4HRT PRN Shortness Of Breath Albuterol/Ipratropium 1 ampul 01/19/19 08:00 01/20/19 09:42 Duoneb *Not For Prn Use* IH 1 ampul TIDRT MATTHEW Administration Aspirin 81 mg 01/18/19 10:00 01/20/19 09:00 Halfprin Ec PO 81 mg QDAY MATTHEW Administration Carvedilol 25 mg 01/18/19 10:00 01/20/19 09:00 Coreg PO 25 mg BID MATTHEW Administration Cholecalciferol 2,000 unit 01/18/19 10:00 01/20/19 08:59 Vitamin D3 PO 2,000 unit QDAY MATTHEW Administration Dextrose 50 ml 01/18/19 00:47 D50w (25gm) Syringe IV PRN PRN Hypoglycemia Enoxaparin Sodium 40 mg 01/18/19 10:00 01/20/19 09:00 Lovenox SUB-Q 40 mg QDAY MATTHEW Administration Fluticasone Propionate 50 mcg 01/18/19 00:48 Flonase NS QDAY PRN SINUS ALLERGIES Furosemide 40 mg 01/18/19 06:00 01/20/19 05:20 Lasix IV 40 mg BID@0600,1800 MATTHEW Administration Insulin Human Lispro 0 unit 01/18/19 07:30 01/20/19 07:30 Humalog SUB-Q Not Given ACHS [facility] Protocol Lisinopril 2.5 mg 01/18/19 10:00 01/20/19 09:00 Zestril PO 2.5 mg QDAY MATTHEW Administration Metformin HCl 500 mg 01/18/19 08:00 01/20/19 09:00 Glucophage PO 500 mg BIDDIAB MATTHEW Administration Ondansetron HCl 4 mg 01/18/19 00:47 Zofran IV Q8H PRN Nausea And Vomiting Oxycodone/Acetaminophen 1 tab 01/18/19 00:47 Percocet 5/325 PO Q6H PRN Pain, Moderate (4-6) Sodium Chloride 10 ml 01/18/19 10:00 01/20/19 09:01 Sodium Chloride Flush Syringe 10 Ml IV 10 ml BID MATTHEW Administration Sodium Chloride 10 ml 01/18/19 00:47 Sodium Chloride Flush Syringe 10 Ml IV PRN PRN LINE FLUSH Nutrition/Malnutrition Assess - Dietary Evaluation Nutrition/Malnutrition Findings: Nutrition Notes Start: 01/19/19 10:52 Freq: Status: Active Protocol: Document 01/19/19 10:52 CP (Rec: 01/19/19 11:02 CP [id number]) Co-Sign 01/19/19 10:52 LP Nutrition Notes Need for Assessment generated from: MD Order,Education Initial or Follow up Assessment Current Diagnosis Diabetes,Heart Failure Current Diet Cardiac/consistent carbohydrate Labs/Tests Glu 116 Pertinent Medications Lasix, insulin Height 5 ft 4 in Weight 96.6 kg Usual Body Weight 91 kg [place] Body Weight (kg) 54.54 BMI 36.5 Intake Prior to Admission Excellent Weight change and time frame Pt stated that she gained 16 pounds of water weight in the last few weeks. Weight Status Obese Subjective/Other Information MD consult for diet education. Pt stated per MD that she was pre-diabetic. Discussed 24 hour recall and the pt came up with a goal to buy low-sodium turkey sausage for breakfast. Went over heart healthy consistent carbohydrate handout together. Pt reports great appetite and consuming 100% of her meals. Percent of energy/protein needs met: 100%/100% Burn Absent Trauma Absent #1 Nutrition Diagnosis Food and nutrition-related knowledge deficit Etiology Pt stating that she did not understand which foods contained CHO. As Evidenced by Signs and Symptoms Glu of 116 Is patient on ventilator? No Is Patient Ambulatory and/or Out of Bed No REE-([facility]-confined to bed) 1823.892 Kcal/Kg value to use for calculation 15 Approximate Energy Requirements Using 1449 kcal/Kg Calculation Used for Recommendations Kcal/kg Additional Notes Pro: 76-91g/day (76kg AdBW) Fluid: 1mL/kcal or per MD request Nutrition Intervention Change Diet Order: Continue current or per MD request Teaching Recipient Patient Learning Readiness Good Teaching Methods Discussion,Handout Response to Teaching Verbalize understanding Education Handouts Provided Heart healthy consistent carbohydrate Barriers to Learning No Barriers RD phone number provided Yes Patient aware of follow up options Yes Goal #1 Adherence to diet education Goal #2 PO intake to continue to meet at least 80% of energy and protein needs Anticipated Discharge Needs: Cardiac/consistent carbohydrate Revisit per MD consult or patient Sign Off request:
[2019-01-20 13:14] VITALS: BP 94/66
--- NOTE | 2019-01-20 13:42 | Progress Note ---
Assessment and Plan HFrEF EF 10-15% Echo done 01/17 showed EF 10-15%, severely dilated LV, moderate to severe MR, and moderately dilated RA. Cont coreg and lisinopril. Cont lasix. Dilated Nonischmemic cardiomyopathy Cont GDMT as tolerated. Diabetes mellitus Management by hospitalist team. Will check A1C and lipid panel in AM Hypertension Blood pressure currently controlled. Continue current cardiac management. Asthma Management by hospitalist team. Obesity Currently stable cardiac status. Pt appears to be nearing euvolemia. Pt may discharge home from cardiology standpoint. At discharge, recommend conversion of IV lasix to PO lasix 40mg BID and KCL 20mEq daily. Plan to address AICD candidacy as OP. Recommend pt follow up in our office within 3-5 days of hospital discharge. She is followed by Dr. Saucedo who is currently out of the office. She states she will call and make appointment with Dr. Jodi Kraus for post-hospital follow-up. The patient has been seen in conjunction with Dr. Cruz who agrees with the assessment and plan of care. Subjective Date of service: 01/20/19 Principal diagnosis: CHF Interval history: pt resting comfortably in bed, states she is feeling much better. in SR on tele with 6 beat run NSVT this AM, pt asymptomatic. Objective Last Vital Signs Temp 98.0 F 01/20/19 13:11 Pulse 65 01/20/19 13:11 Resp 18 01/20/19 13:11 BP 94/66 01/20/19 13:11 Pulse Ox 96 01/20/19 13:11 - Physical Examination General: No Apparent Distress HEENT: Positive: PERRL, EOMI Neck: Positive: neck supple, trachea midline Cardiac: Positive: Reg Rate and Rhythm, S1/S2 Lungs: Positive: Decreased Breath Sounds Neuro: Positive: Grossly Intact Abdomen: Positive: Soft, Active Bowel Sounds Skin: Negative: Rash Extremities: Present: +1 Edema - Imaging and Cardiology EKG: report reviewed Echo: report reviewed (An echo from our office on 01/17 found an EF of 10 to 15 percent with a severely dilated LV, moderate hypertension, moderate to severe MR, and moderately dilated RA.) Cardiac cath: report reviewed (Her last cardiac catheterization on 01/15/10 found normal coronaries, dilated cardiomyopathy and an EF of 20 to 25 percent.)
--- NOTE | 2019-01-20 13:43 | Discharge Summary ---
Providers - Providers Date of Admission: 01/17/19 23:43 Date of discharge: 01/20/19 Attending physician: SERGO LARSON 01/17/19 23:49 Consult to Physician [CONS] Stat Comment: Dr. Thao spoke with Dr. Dow @ [phone] Consulting Provider: ROMAINE DOW Physician Instructions: Reason For Exam: chf exacerbation 01/18/19 16:46 Consult to Dietitian/Nutrition [CONS] Routine Physician Instructions: Reason For Exam: Diet education for CHF, diabetes, Obesity Reason for Consult: Diet education [facility] Hospital course: Patient is 59 yo with diabetes, CHF, asthma. She presented to Emergency Dept with complaints of shortness of breath and lower extremity edema 3 days. She states that she's been off her Lasix years because she has been doing well, the cad draftsman took her off it. She saw a cad draftsman today who sent her to the emergency room for further evaluation. She was seen and evaluated in emergency department. She patient demonstrated acute respiratory failure secondary to acute on chronic systolic CHF exacerbation. Echo EF 10-15%. She was started on Lasix IV and admitted. She was also on Coreg lisinopril. She improved after few days, shortness of breath subsided, and she was discharged home on 01/20/19 Total time spent on discharge, 34 mins Disposition: DC-01 TO HOME OR SELFCARE - Discharge Diagnoses (1) Acute respiratory failure Status: Acute (2) Acute respiratory failure with hypoxia Status: Acute (3) Acute on chronic systolic (congestive) heart failure Status: Acute (4) HTN (hypertension) Status: Acute (5) Diabetes mellitus type 2 in obese Status: Acute (6) Cardiomyopathy Status: Acute Core Measure Documentation - Palliative Care Palliative Care/ Comfort Measures: Not Applicable - Core Measures Any of the following diagnoses?: heart failure - Heart Failure Discharge Requirements JESUS/ARB for LVSD if EF <40%: Yes Beta stephanie at discharge: Yes Exam - Constitutional Vitals: Temp Pulse Resp BP Pulse Ox 98.0 F 65 18 94/66 96 01/20/19 13:11 01/20/19 13:11 01/20/19 13:11 01/20/19 13:11 01/20/19 13:11 Plan Diet: low fat, low cholesterol, low salt, diabetic Additional Instructions: 1.Follow up with PCP in 1 week. 2.Follow up with Dr. Jodi Dow in 3-5 days. 3.No strenous activity unless cleared by cardiology. Follow up with: NATALIA BLANKENSHIP MD [Primary Care Provider] - 3-5 Days Forms: Work/School Release Form(ED) Prescriptions: Potassium Chloride [K-Dur] 10 meq PO QDAY #30 tablet Furosemide [Lasix TAB] 40 mg PO BID #60 tablet Lisinopril [Zestril TAB] 2.5 mg PO QDAY #30 tablet
== END 2019-01-20 16:59 | disposition home or self-care (01) | DRG 291 ==
LOC: ED 18:12 → 4A 23:43
PROVIDERS: ADMIT Internal Medicine; ATTEND Internal Medicine
DX: I11.0 Hypertensive heart disease with heart failure (principal); J96.00 Acute respiratory failure, unspecified whether with hypoxia or hypercapnia; I50.23 Acute on chronic systolic (congestive) heart failure; I42.0 Dilated cardiomyopathy; E11.9 Type 2 diabetes mellitus without complications; E66.9 Obesity, unspecified; M19.90 Unspecified osteoarthritis, unspecified site; J45.909 Unspecified asthma, uncomplicated; Z96.659 Presence of unspecified artificial knee joint; Z68.34 Body mass index [BMI] 34.0-34.9, adult; Z71.3 Dietary counseling and surveillance; Z72.89 Other problems related to lifestyle; Z82.49 Family history of ischemic heart disease and other diseases of the circulatory system; Z79.82 Long term (current) use of aspirin; Z79.899 Other long term (current) drug therapy
CPT/HCPCS: 36415; 71046; 80048; 80053; 80061; 82550; 82553; 82962; 83036; 83880; 84484; 85025; 93005; 93010; 94640; G0378; J1650; J1940